=== PATIENT | male | born 2000 | race American Indian/Alaskan Native ===

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

== ENCOUNTER 2021-09-16 15:59 | Emergency (ER) | payer BC ==
[2021-09-16] MEDS ORDERED: LIDOCAINE-MPF (1%) 10 MG/1 ML VIAL 5 ML INFILTRATI ONE (18:34)
--- NOTE | 2021-09-16 18:37 | Emergency Department Report ---
ED Male HPI - General Chief complaint: Urogenital-Male Stated complaint: POSS STD Time Seen by Provider: 09/16/21 16:45 Source: patient Mode of arrival: Ambulatory Limitations: No Limitations - History of Present Illness Initial comments: Patient is a 21-year-old male presents emergency room complaints of penile discharge that began 2 to 3 days ago. He states that it is white in coloration. He has associated dysuria. He denies any fever, nausea, vomiting, pain or swelling the testicles, abdominal pain, hematuria, urinary retention. Patient states that his partner tested positive for chlamydia. No past medical history. No allergies to medications. - Related Data Previous Rx's Medication Instructions Recorded Last Taken Type Albuterol Sulfate [Ventolin HFA] 2 puff IH Q4H PRN #1 hfa.aer.ad 02/07/16 Unknown Rx Azithromycin [Zithromax] 250 mg PO DAILY #1 pkg 02/07/16 Unknown Rx Fluticasone [Flonase] 2 spray NS QDAY #01 bottle 02/07/16 Unknown Rx Loratadine (Nf) [Claritin] 10 mg PO DAILY #30 tablet 02/07/16 Unknown Rx Prednisone [predniSONE 10 mg 10 mg PO .TAPER #1 tab.ds.pk 02/07/16 Unknown Rx (6-Day Pack, 21 Tabs)] Doxycycline Hyclate [Doxycycline 100 mg PO BID 7 Days #14 tab 09/16/21 Unknown Rx Hyclate TAB] Allergies Allergy/AdvReac Type Severity Reaction Status Date / Time No Known Allergies Allergy Verified 02/06/16 20:02 ED Review of Systems ROS: Stated complaint: POSS STD Other details as noted in HPI Comment: All other systems reviewed and negative ED Past Medical Hx - Past Medical History Hx Asthma: Yes - Social History Smoking Status: Never Smoker Substance Use Type: None - Medications Home Medications: Home Medications Medication Instructions Recorded Confirmed Last Taken Type Albuterol Sulfate [Ventolin HFA] 2 puff IH Q4H PRN #1 hfa.aer.ad 02/07/16 Unkn own Rx Azithromycin [Zithromax] 250 mg PO DAILY #1 pkg 02/07/16 Unknown Rx Fluticasone [Flonase] 2 spray NS QDAY #01 bottle 02/07/16 Unknown Rx Loratadine (Nf) [Claritin] 10 mg PO DAILY #30 tablet 02/07/16 Unknown Rx Prednisone [predniSONE 10 mg 10 mg PO .TAPER #1 tab.ds.pk 02/07/16 Unknown Rx (6-Day Pack, 21 Tabs)] Doxycycline Hyclate [Doxycycline 100 mg PO BID 7 Days #14 tab 09/16/21 Unknown Rx Hyclate TAB] ED Physical Exam - General Limitations: No Limitations General appearance: alert, in no apparent distress - Head Head exam: Present: atraumatic, normocephalic - Eye Eye exam: Present: normal appearance - ENT ENT exam: Present: mucous membranes moist - Respiratory Respiratory exam: Absent: respiratory distress, accessory muscle use - Neurological Exam Neurological exam: Present: alert, oriented X3 - Psychiatric Psychiatric exam: Present: normal affect, normal mood - Skin Skin exam: Present: warm, dry ED Course Vital Signs 09/16/21 09/16/21 16:07 19:23 Temperature 98.9 F Pulse Rate 64 57 L Respiratory 16 16 Rate Blood Pressure 146/72 135/80 [Left] O2 Sat by Pulse 100 100 Oximetry ED Medical Decision Making - Medical Decision Making Patient is a 21-year-old male presents emergency room complaints of penile discharge that began 2 to 3 days ago. He states that it is white in coloration. He has associated dysuria. He denies any fever, nausea, vomiting, pain or swelling the testicles, abdominal pain, hematuria, urinary retention. Patient states that his partner tested positive for chlamydia. No past medical history. No allergies to medications. VSS. symptoms appear likely consistent with STD given that there has been positive exposure. Patient given ceftriaxone IM while in the emergency room. Given prescription for doxycycline. Advised patient Please take medication as prescribed. Follow-up with a primary care doctor or a clinic in order to have a full STD panel. Please have any partners tested and treated as well. Avoid sexual intercourse until completion of medication. Return to emergency room for any new or worse symptoms. Critical care attestation.: If time is entered above; I have spent that time in minutes in the direct care of this critically ill patient, excluding procedure time. ED Disposition Clinical Impression: Concern about STD in male without diagnosis, Penile discharge, Dysuria Disposition: 01 HOME / SELF CARE / HOMELESS Is pt being admited?: No Does the pt Need Aspirin: No Condition: Stable Instructions: Safe Sex Additional Instructions: Please take medication as prescribed. Follow-up with a primary care doctor or a clinic in order to have a full STD panel. Please have any partners tested and treated as well. Avoid sexual intercourse until completion of medication. Return to emergency room for any new or worse symptoms. Prescriptions: Doxycycline Hyclate [Doxycycline Hyclate TAB] 100 mg PO BID 7 Days #14 tab Referrals: PRIMARY CARE, [Primary Care Provider] - 2-3 Days [facility] [Outside] - 2-3 Days Time of Disposition: 18:36 Print Language: MONGOLIAN
[2021-09-16 19:25] VITALS: BP 135/80
== END 2021-09-16 19:23 | disposition home or self-care (01) ==
LOC: ED 15:59
DX: R36.9 Urethral discharge, unspecified (principal); R30.0 Dysuria; Z20.2 Contact with and (suspected) exposure to infections with a predominantly sexual mode of transmission; J45.909 Unspecified asthma, uncomplicated
CPT/HCPCS: 96372; 99282; J0696; J3490